=== PATIENT | female | born 1985 | race Two or more races ===

== ENCOUNTER 2017-08-02 16:18 | Emergency (ER) | payer BC ==
[2017-08-02 16:58] VITALS: BP 116/77
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
[2017-08-02 17:35] LABS: CHLORIDE,CL 101 mmol/L (98-107); SODIUM,NA 137 mmol/L (136-145)
== END 2017-08-02 18:11 | disposition home or self-care (01) ==
LOC: MW.ED 16:18
DX: Z13.9 Encounter for screening, unspecified (principal); Z87.891 Personal history of nicotine dependence
CPT/HCPCS: 36415; 80053; 81001; 84703; 85025; 85610; 99282; 99284

== ENCOUNTER 2020-03-23 14:25 | Emergency (ER) | payer BC ==
[2020-03-23 15:42] LABS: BLOOD UREA NITROGEN,BUN 14 mg/dL (7.0-18.0); CARBON DIOXIDE,CO2 25.6 mmol/L (21.0-32.0); CHLORIDE,CL 101 mmol/L (98-107); GLUCOSE RANDOM 86 mg/dL (74-106); POTASSIUM,K 3.9 mmol/L (3.5-5.1); SODIUM,NA 139 mmol/L (136-145)
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
[2020-03-23 17:35] VITALS: BP 109/77; PULSE 86
== END 2020-03-23 17:31 | disposition home or self-care (01) ==
LOC: MW.ED 14:25
DX: R22.32 Localized swelling, mass and lump, left upper limb (principal); M79.10 Myalgia, unspecified site; Z72.0 Tobacco use
CPT/HCPCS: 36415; 80053; 81001; 81025; 82550; 85025; 99282; 99283